=== PATIENT | female | born 1940 | race Asian ===

== ENCOUNTER 2020-01-05 17:30 | Inpatient (IN) | payer MEDICARE, OTHER ==
[~2020-01-05] VITALS: Ht 152.4 cm; Wt 68.9 kg
[2020-01-05] MEDS ORDERED: LORAZEPAM 2 MG/1 ML VIAL IM ONE ×2 (17:45→18:30)
[2020-01-05] MEDS ORDERED: HALOPERIDOL LACTATE 5 MG/1 ML VIAL IM ONE (17:45)
[2020-01-05] MEDS ORDERED: HALOPERIDOL LACTATE 5 MG/1 ML VIAL ONE (17:45)
[2020-01-05] MEDS ORDERED: LORAZEPAM 2 MG/1 ML VIAL ONE ×2 (17:49→18:39)
[2020-01-05 17:59] LABS: CARBON DIOXIDE 27 mmol/L (21-32); CHLORIDE 106 mmol/L (98-107); GLUCOSE 108 mg/dL (74-106); POTASSIUM 4.1 mmol/L (3.5-5.1); UREA NITROGEN, BLOOD 19 mg/dL (7-18)
[2020-01-05 18:01] LABS: ETHANOL < 3 MG/DL (0-0)
[2020-01-05 18:05] LABS: ALANINE AMINOTRANSFERASE 17 U/L (14-59); ALKALINE PHOSPHATASE 55 U/L (50-136); ASPARTATE AMINOTRANSFERASE 22 U/L (15-37); BILIRUBIN,DIRECT 0.1 mg/dL (0.0-0.2); BILIRUBIN,TOTAL 0.3 mg/dL (0.2-1.0); TOTAL PROTEIN, SERUM 7.7 g/dL (6.4-8.2)
[2020-01-05] MEDS ORDERED: QUET50TA PO (18:06)
[2020-01-05] MEDS ORDERED: NA P133E RC (18:06)
[2020-01-05] MEDS ORDERED: MAGN400O6 PO (18:06)
[2020-01-05] MEDS ORDERED: TRAZ-182 PO (18:06)
[2020-01-05] MEDS ORDERED: RIVASTIGMINE PO (18:06)
[2020-01-05] MEDS ORDERED: QUET100T PO (18:06)
[2020-01-05] MEDS ORDERED: BISA10SU61 RC (18:06)
[2020-01-05] MEDS ORDERED: MIRT15TA PO (18:06)
[2020-01-05] MEDS ORDERED: ACET-2154 PO (18:06)
[2020-01-05] MEDS ORDERED: ROSU10TA2 PO (18:06)
[2020-01-05] MEDS ORDERED: DOCU100C36 PO (18:06)
[2020-01-05 18:16] LABS: BASOPHILS % (AUTO) 0.8 % (0.0-2.0); EOSINOPHILS # (AUTO) 0.1 K/uL (0.0-0.7); EOSINOPHILS % (AUTO) 1.6 % (0.0-7.0); HEMATOCRIT 37.9 % (31.2-41.9); HEMOGLOBIN 12.6 g/dL (10.9-14.3); LYMPHOCYTES # (AUTO) 2.1 K/uL (20.0-40.0); LYMPHOCYTES % (AUTO) 33.6 % (20.5-51.5); MEAN CORPUSCULAR HEMOGLOBIN 29.8 uug (24.7-32.8); MEAN CORPUSCULAR HGB CONC 33 g/dL (32.3-35.6); MEAN CORPUSCULAR VOLUME 89.2 fL (75.5-95.3); MONOCYTES # (AUTO) 0.3 K/uL (2.0-10.0); NEUTROPHILS # (AUTO) 3.6 K/uL (1.8-8.9); PLATELET COUNT (AUTO) 136 K/uL (179-408); RED BLOOD CELL COUNT(AUTO) 4.24 MIL/uL (3.63-4.92); WHITE BLOOD COUNT (AUTO) 6.1 K/uL (3.8-11.8)
--- NOTE | 2020-01-05 18:30 | NUR ---
Patient noted trying to get out of bed. redirected patient, attempted to distract, patient still noted trying to get out of bed. Security notified
--- NOTE | 2020-01-05 18:35 | NUR ---
Security at bedside 1:1 with patient
--- NOTE | 2020-01-05 19:19 | NUR ---
Report given to murali EDWARDS
--- NOTE | 2020-01-05 19:20 | NUR ---
received report from GRACE Clinton Pt in bed AA/O. Confused. Security at bedside 1:1 with pt
[2020-01-05 19:22] LABS: *BILIRUBIN,URIN NEGATIVE (NEGATIVE); *BLOOD, URINE 1+ (NEGATIVE); *CLARITY,URINE CLEAR (CLEAR); *COLOR,URINE YELLOW (YELLOW); *KETONES,URINE NEGATIVE (NEGATIVE); *UROBILINOGEN,URINE 0.2 E.U./dl (NORMAL); LEUKOCYTE ESTERASE ,URINE NEGATIVE (NEGATIVE); NITRITE, URINE NEGATIVE (NEGATIVE); PH,URINE 6.5 (5.0-8.0); UGLUCOSE NEGATIVE (NEGATIVE)
[2020-01-05 19:33] LABS: WBC,URINE 0-3 /HPF (0-3)
--- NOTE | 2020-01-05 19:35 | NUR ---
security at bedside 1:1 with pt
[2020-01-05 19:37] LABS: *AMPHETAMINE, URINE NEGATIVE (NEGATIVE); *BARBITURATE, URINE NEGATIVE (NEGATIVE); *CANNABINOID, URINE NEGATIVE (NEGATIVE); *COCCAINE, URINE NEGATIVE (NEGATIVE); *OPIATE, URINE NEGATIVE (NEGATIVE); *PHENCYCLIDINE SCREEN,URINE NEGATIVE (NEGATIVE)
--- NOTE | 2020-01-05 19:40 | NUR ---
Pt is medically cleared by Dr. Doyle
--- NOTE | 2020-01-05 19:42 | NUR ---
called Eli from Crisis Team for psych eval. ETA 1hr
--- NOTE | 2020-01-05 19:45 | NUR ---
Security at bedside 1:1 with pt
--- NOTE | 2020-01-05 20:00 | NUR ---
Security at bedside 1:1 with pt
--- NOTE | 2020-01-05 20:15 | NUR ---
security at bedside 1:1 with pt
--- NOTE | 2020-01-05 20:30 | NUR ---
security at bedside 1:1 with pt
--- NOTE | 2020-01-05 20:45 | NUR ---
security at bedside 1:1 with pt
--- NOTE | 2020-01-05 21:00 | NUR ---
security at bedside 1:1 with pt
--- NOTE | 2020-01-05 21:01 | NUR ---
report given to GRACE Ramachandran
[2020-01-05] MEDS ORDERED: MAG HYDROX/AL HYDROX/SIMETH 30 ML LIQUID UDC PO PRN (21:15)
[2020-01-05] MEDS ORDERED: MAGNESIUM HYDROXIDE 30 ML LIQUID UDC PO PRN (21:15)
[2020-01-05] MEDS ORDERED: ACETAMINOPHEN 325 MG TABLET PO PRN (21:15)
--- NOTE | 2020-01-05 21:15 | NUR ---
security rodriguez at bedside 1:1 with pt
--- NOTE | 2020-01-05 21:22 | NUR ---
Pt. admitted to [facility] Room 139A , under care of Dr. Jesus, Dr. Archuleta Belongs List completed. All belongings with pt transported pt via gurney with security Sharon Pt a/o. confused no s/s of distress Respirations even and unlabored
[2020-01-05] MEDS ORDERED: ZOLPIDEM 5 MG TABLET PO PRN (21:45)
[2020-01-05 22:40] VITALS: BP 109/71
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
[2020-01-06] MEDS ORDERED: BISACODYL 10 MG SUPP.RECT RC PRN (07:00)
[2020-01-06] MEDS ORDERED: ACETAMINOPHEN 325 MG TABLET PO SCH (07:00)
[2020-01-06] MEDS ORDERED: MAGNESIUM HYDROXIDE 30 ML LIQUID UDC PO PRN (07:00)
[2020-01-06] MEDS ORDERED: RIVASTIGMINE 1.5 MG PO SCH (09:00)
[2020-01-06] MEDS: DOCUSATE SODIUM 100 MG CAPSULE PO SCH ×2 (09:25→20:24)
--- NOTE | 2020-01-06 10:36 | NUR ---
SW Family Contact: Spoke with patient's son, Rizwan ([phone]) regarding treatment plan and collected collateral information, refer to manager social responsibility's assessment.
--- NOTE | 2020-01-06 10:36 | NUR ---
MANJULA Initial Discharge Note: Patient currently resides at [facility] [address] [place] [address]([phone]). Patient will return to her alf upon discharge. Discussed treatment plan with patient's son, Rizwan ([phone]), who would like patient to return to her alf. MANJULA will continue to work with patient, family, and MD to ensure a safe and proper discharge plan.
--- NOTE | 2020-01-06 10:44 | NUR ---
MANJULA Coordination of Care: SW called [facility] ([phone]) to confirm patient's bed and collect collateral information. Left a voicemail , waiting for a call back.
--- NOTE | 2020-01-06 10:50 | NUR ---
Social Work Firearms Report ([employer]): Culture Room Worker completed and submitted a [employer] firearms report for 5150 danger to others and grave disability certification. A copy of report has been placed in patient chart.
[2020-01-06] MEDS: LORAZEPAM 0.5 MG TABLET PO PRN (12:40)
[2020-01-06 16:02] VITALS: BP 136/76
[2020-01-06] MEDS ORDERED: Medication Not On Formulary EA (Rosuvastatin Calcium (Crestor) 1 TAB) PO SCH (18:00)
[2020-01-06 20:01] VITALS: BP 165/74
[2020-01-06] MEDS: MIRTAZAPINE 15 MG TABLET PO SCH (20:24)
[2020-01-06] MEDS: ATORVASTATIN 20 MG TABLET PO SCH (20:24)
[2020-01-07 07:30] VITALS: BP 144/83
[2020-01-07] MEDS: DOCUSATE SODIUM 100 MG CAPSULE PO SCH ×2 (08:25→21:00)
--- NOTE | 2020-01-07 14:02 | NUR ---
Social Work Coordination of Care: color drum worker spoke with sales agent business services Janet ([phone]) who stated that the bed hold is for 14 days and when patient is stable for discharge she is welcomed back.
--- NOTE | 2020-01-07 15:29 | NUR ---
Social Work Individual Therapy: leather production worker met with patient for brief counseling to address patient's disorganized thought process. Patient is unable to have a meaningful conversation with this publicity writer. Patient is confused and is not able to comprehend. This publicity writer was unable to have a conversation with patient.
[2020-01-07 16:00] VITALS: BP 131/86
[2020-01-07] MEDS: LORAZEPAM 0.5 MG TABLET PO PRN (17:38)
[2020-01-07 20:00] VITALS: BP 158/89
[2020-01-07] MEDS: MIRTAZAPINE 15 MG TABLET PO SCH (21:00)
[2020-01-07] MEDS: ATORVASTATIN 20 MG TABLET PO SCH (21:00)
[2020-01-08] MEDS: LORAZEPAM 0.5 MG TABLET PO PRN ×2 (00:51→08:31)
[2020-01-08 07:30] VITALS: BP 156/77
[2020-01-08] MEDS: DOCUSATE SODIUM 100 MG CAPSULE PO SCH ×2 (08:31→20:31)
--- NOTE | 2020-01-08 15:30 | NUR ---
Social Work Individual Therapy: amusement park worker met with patient for brief counseling to address patient's disorganized thought process. Patient is unable to have a meaningful conversation with this radio news writer. Patient is disorganized and disoriented. Patient is unable to have proper eye contact. This radio news writer was unable to provided any sort of education or support.
[2020-01-08 15:41] VITALS: BP 143/77
[2020-01-08 20:00] VITALS: BP 142/76
[2020-01-08] MEDS: QUETIAPINE FUMARATE 25 MG TABLET PO SCH (20:31)
[2020-01-08] MEDS: ATORVASTATIN 20 MG TABLET PO SCH (20:32)
[2020-01-08] MEDS: MIRTAZAPINE 15 MG TABLET PO SCH (20:32)
--- NOTE | 2020-01-08 20:51 | NUR ---
PATIENT IS CONFUSED AND REDIRECTABLE, a/o X1. patient is complaint with medication. patient continues to wonder in and out of patient's room and the hallway. Safe environment provided, frequent rounding, and clutter free environment. Bed in lowest position, and bed alarm on while in bed.
[2020-01-09 07:30] VITALS: BP 127/68
[2020-01-09] MEDS: DOCUSATE SODIUM 100 MG CAPSULE PO SCH ×2 (08:08→21:00)
[2020-01-09] MEDS: QUETIAPINE FUMARATE 25 MG TABLET PO SCH ×2 (08:08→21:01)
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
[2020-01-09 16:00] VITALS: BP 109/84
[2020-01-09] MEDS: MIRTAZAPINE 15 MG TABLET PO SCH ×2 (21:00→21:30)
[2020-01-09] MEDS: ATORVASTATIN 20 MG TABLET PO SCH (21:01)
[2020-01-09 21:26] VITALS: BP 144/61
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
[2020-01-10] MEDS: QUETIAPINE FUMARATE 25 MG TABLET PO SCH ×2 (08:11→21:27)
[2020-01-10] MEDS: DOCUSATE SODIUM 100 MG CAPSULE PO SCH ×2 (08:11→21:26)
--- NOTE | 2020-01-10 11:45 | NUR ---
Gps/Physician General Internal Medicine- Shower was given, 2 staff needed , pt. was resistive to care. Toileted , continent of her bladder. Safety reviewed, continue to emphasized. patient wanders around , needed to be monitored closely for safety..
--- NOTE | 2020-01-10 15:45 | NUR ---
Gps/Forklift Operator- Has been restless, kept wandering to other patient's room,staff has difficulty redirecting patient. # 3 staff to assist patient to se-chair, aggressive .
[2020-01-10 16:00] VITALS: BP 154/81
[2020-01-10] MEDS: LORAZEPAM 0.5 MG TABLET PO PRN (16:10)
[2020-01-10 20:00] VITALS: BP 140/68
[2020-01-10] MEDS: MIRTAZAPINE 15 MG TABLET PO SCH (21:27)
[2020-01-10] MEDS: ATORVASTATIN 20 MG TABLET PO SCH (21:27)
--- NOTE | 2020-01-10 23:58 | NUR ---
RECEIVED PATIENT IN THE HALLWAY IN A ESTUARDO CHAIR TALKING AND GESTURING TO HERSELF IN UPPER SORBIAN. APPEARS IRRITABLE BUT AFTER A WHILE SHE CONSENTED TO TAKE HER MEDICATIONS. OCCASIONALLY RESISTIVE TO CARE FREQUENT VISUAL CHECKS MADE ON HER FOR SAFETY. WILL CONTINUE TO MONITOR.
--- NOTE | 2020-01-11 06:34 | NUR ---
SLEPT FOR APPROX.07;00 HOURS.
[2020-01-11 07:30] VITALS: BP 144/93
[2020-01-11] MEDS: QUETIAPINE FUMARATE 25 MG TABLET PO SCH ×2 (08:14→20:25)
[2020-01-11] MEDS: DOCUSATE SODIUM 100 MG CAPSULE PO SCH ×2 (08:14→20:24)
--- NOTE | 2020-01-11 12:04 | NUR ---
Social Work Family Contact: transportation maintenance worker spoke with patient's son Rizwan ([phone]) and discussed patient's discharge plan.
--- NOTE | 2020-01-11 13:51 | NUR ---
Social Work Coordination of Care: This lead technical writer spoke with Brielle ([phone]) admin coordinator from [facility] who stated that they are willing to accept patient back and asked this lead technical writer to follow back 01/11 to confirm bed. Addendum: 01/11/20 at 1353 by MANJULA DOWNS Social Work Coordination of Care: This lead technical writer spoke with Bhumika ([phone]) admin coordinator from [facility] who stated that they are willing to accept patient back and asked this lead technical writer to follow back 01/11 to confirm bed.
[2020-01-11 15:37] VITALS: BP 125/81
--- NOTE | 2020-01-11 16:27 | NUR ---
Social Work Firearms Report: Moving Van Driver completed and submitted a [employer] firearms report for 5250 grave disability certification. A copy of report has been placed in patient chart.
--- NOTE | 2020-01-11 17:31 | NUR ---
patient is confused and disoriented wondering around in the unit, attempted to get in to other pt's room.requested assistance at all time.
[2020-01-11 20:00] VITALS: BP 139/83
[2020-01-11] MEDS: MIRTAZAPINE 15 MG TABLET PO SCH (20:24)
[2020-01-11] MEDS: ATORVASTATIN 20 MG TABLET PO SCH (20:25)
--- NOTE | 2020-01-11 23:45 | NUR ---
OOB in gerichair @ beginning of shift. AAOx1. Confused and disoriented. Compliant with meds. Attended to needs. Assisted back to bed with moderate assist. VSS. patient gets combative for only short time . Will monitor for further aggressiveness or agitation.
--- NOTE | 2020-01-12 05:36 | NUR ---
slept well throughout the shift. quiet night. No signs of any behavioral issues noted. VSS. Will monitor patient. Incontinent of urine. Kept clean and dry..
[2020-01-12 07:30] VITALS: BP 164/69
[2020-01-12] MEDS: QUETIAPINE FUMARATE 25 MG TABLET PO SCH (08:44)
[2020-01-12] MEDS: DOCUSATE SODIUM 100 MG CAPSULE PO SCH (08:44)
--- NOTE | 2020-01-12 10:10 | NUR ---
Social Work Discharge Note: Patient will be discharged to detention facility [facility] [address] [place] [address]; ([phone]) via ambulance transportation at 3PM. This data analyst report writer spoke with Bhumika director business management ([phone]) from [facility] ([phone]) who stated that patient is welcomed back. Patients son Rizwan ([phone]) is aware and agree able with discharge plan. Patient is alert and oriented x1-2 and is unable to plan for self-care. Patient denies any suicidal or homicidal ideation. Patient is aware and agreeable with discharge plans. Patient will continue to follow-up with (psychiatrist) Dr. Thornton and with (animal nutrition teacher) Dr. Madrid at [facility]. Patient presented with euthymic and congruent mood.
--- NOTE | 2020-01-12 10:42 | NUR ---
Social Work Individual Therapy: utility worker film processing met with patient for brief counseling to address patient's disorganized thought process. Patient is unable to have a meaningful conversation with this loan underwriter. Patient is disorganized and disoriented. Patient is unable to have proper eye contact. This loan underwriter was unable to provided any sort of education or support. This loan underwriter attempted to use [employer] but patient refused to use it and just threw the phone. Patient is confused.
[2020-01-12 16:00] VITALS: BP 149/89
[2020-01-12] MEDS: LORAZEPAM 0.5 MG TABLET PO PRN (16:41)
--- NOTE | 2020-01-12 17:15 | NUR ---
Patient discharged to [facility]. Report called to AYDEN RN at the facility. Patient confused at the time of discharge d/t dementia, but not combative. All belongings sent with patient along with medication reconciliation and other pertinent information. No acute behavioral issues noted at the time of discharge
== END 2020-01-12 16:45 | DRG 881 ==
LOC: ER 17:34 → GPS 21:03
PROVIDERS: ADMIT Psychiatry & Neurology Psychiatry; ATTEND Internal Medicine
DX: F32.9 Major depressive disorder, single episode, unspecified (principal); F03.91 Unspecified dementia, unspecified severity, with behavioral disturbance; D69.6 Thrombocytopenia, unspecified; E66.9 Obesity, unspecified; F20.9 Schizophrenia, unspecified; I11.9 Hypertensive heart disease without heart failure; E78.5 Hyperlipidemia, unspecified; I49.5 Sick sinus syndrome; I70.0 Atherosclerosis of aorta; R53.1 Weakness; Z68.29 Body mass index [BMI] 29.0-29.9, adult; F29 Unspecified psychosis not due to a substance or known physiological condition
CPT/HCPCS: 36415; 71045; 80307; 85025; 93005; C1758; G0480; J1630; J2060